=== PATIENT | male | born 1930 | race Caucasian/White ===

== ENCOUNTER 2017-03-14 20:28 | Inpatient (IN) | payer MEDICARE ==
[~2017-03-14] VITALS: Ht 188 cm; Wt 65.2 kg
--- NOTE | ~2017-03-14 | HP ---
PATIENT'S NAME: [facility] AGE: 86 Y [address] ROOM: [place] [address] LOCATION: [facility] ADMIT DATE: 03/14/2017 History & Physical DISCHARGE DATE: FAMILY PHYSICIAN: PHYSICIAN, UNKNOWN ATTENDING PHYSICIAN: DEVORA LAWRENCE V DATE OF SERVICE: CHIEF COMPLAINT: Dehydration. HISTORY OF PRESENT ILLNESS: This is provided by the patient and his daughters. He is an 86-year-old male with multiple medical problems as listed below. Family reports the patient had a considerably diminished oral intake in the course of last 3 days, initially started due to a gastrointestinal upset, that subsequently resolved. However, the patient continued to eat virtually nothing and also did not drink much either. The daughters and the patient denies any fevers, chills, nausea, vomiting, diarrhea, shortness of breath, cough, or palpitations. An evaluation in the ER revealed an elevated creatinine and aside from that was grossly unremarkable. REVIEW OF SYSTEMS: All systems have been reviewed and negative excluding pertinent positives mentioned in the HPI. PAST MEDICAL HISTORY: As retrieved from records: 1. Carcinoma of the bladder, status post resection of benign prostatic hyperplasia, status post TURP. 2. Spinal stenosis. 3. Insulin-dependent diabetes. 4. Essential hypertension. 5. Recorded history of atrial fibrillation though I do not believe the patient is on anticoagulation. 6. Coronary artery disease. 7. Sick sinus syndrome with a pacemaker. 8. GERD. 9. Hiatal hernia. 10. Documented history of congestive heart failure though we have a recent stress and an echo both of which are unremarkable. 11. Carries a history of rheumatoid arthritis. PATIENT'S NAME: [facility] AGE: 86 Y [address] ROOM: [place] [address] LOCATION: [facility] ADMIT DATE: 03/14/2017 History & Physical DISCHARGE DATE: FAMILY PHYSICIAN: PHYSICIAN, UNKNOWN ATTENDING PHYSICIAN: DEVORA LAWRENCE V 12. Cervical and lumbar degenerative joint disease. 13. CKD, appears to be stage 3. 14. Diabetic neuropathy, on gabapentin. 15. Chronic hypoxic respiratory failure with oxygen dependency. CURRENT MEDICATIONS: 1. Albuterol. 2. Amlodipine. 3. Aspirin. 4. Calcium with vitamin D. 5. Colace. 6. Ferrous sulfate. 7. Folic acid. 8. Gabapentin. 9. Insulin NPH 20 units subcu b.i.d. and regular insulin documented as 10 units twice daily p.r.n. 10. Synthroid 125. 11. Magnesium oxide. 12. Metoprolol 25 daily. 13. Multivitamin. 14. Omeprazole. 15. Pravastatin. FAMILY HISTORY: Reviewed and noncontributory due to advanced age. SOCIAL HISTORY: Negative for any ongoing toxic habits. PHYSICAL EXAMINATION: VITAL SIGNS: Temperature 98.3, pulse is 72, respirations are 12, blood pressure 168/80, and saturation 98% on 2 L nasal cannula. GENERAL: Appears as a malnourished elderly male in no acute distress. PSYCHIATRIC: Reveals a very pleasant gentleman, alert and oriented x3, with appropriate cognition and affect. HEENT: Exam reveals dry mucous membranes. EYES: Exam reveals pupils are equal and reactive to light. LYMPHATICS: Exam shows no cervical lymphadenopathy. ENDOCRINE: Exam shows no thyromegaly. LUNGS: There are dry crackles at the right base. HEART: Reveals regular rate and rhythm. GI: Abdomen is soft, nontender, nondistended. Normoactive bowel sounds. : Exam reveal some suprapubic tenderness. VASCULAR: A 2+ pedal pulses. MUSCULOSKELETAL: Exam shows diffuse muscle wasting. PATIENT'S NAME: WOO LUCIA [facility] AGE: 86 Y [address] ROOM: [place] [address] LOCATION: [facility] ADMIT DATE: 03/14/2017 History & Physical DISCHARGE DATE: FAMILY PHYSICIAN: PHYSICIAN, UNKNOWN ATTENDING PHYSICIAN: DEVORA LAWRENCE V LABORATORY DATA: Studies performed in the ER shows lactate of 2.5. Sodium 134, creatinine 1.8 from baseline of approximately 1. Pro-BNP of 6000. Negative cardiac enzymes. Unremarkable CBC. TSH is 3.9. Procalcitonin is negative. Urinalysis has 50 to 100 wbcs with no bacteria. Chest x-ray shows poor inspiratory effort with some crackles versus infiltrate on the right base, which has been present in the past. ASSESSMENT AND PLAN: This is an 86-year-old male who will be admitted with: 1. Jrrbw-[id number] kidney injury, stage 4. This is likely due to dehydration. The patient was already started on hydration and we will continue intravenous normal saline on the floor. We will recheck his electrolytes in the morning. We will also check a postvoid residual to make sure his symptoms are not due to obstructive uropathy though the patient has been voiding; so, it is unlikely to be the cause. 2. Dry crackles. At this point, the patient and family do not volunteer any symptoms or clinical signs consistent with pneumonia. Given the fact that the patient has had C. diff in the past, I would like to stay away from antibiotics and monitor him clinically. 3. Benign prostatic hypertrophy, not sure why the patient is not on an alpha- antagonist and we will have to recheck his medical records. The patient was recently started on Macrodantin by his PCP for questionable urinary tract infection and we will have to follow up his urine cultures drawn here. 4. Insulin-dependent diabetes. We will continue the patient on his current insulin regimen. 5. Encephalopathy/altered mental status and sleepiness. We will decrease the dose of Neurontin, which the patient is on, should his kidney function considerably slow down and observe for effect. 6. Deep venous thrombosis prophylaxis will be pharmacologic if the patient stays in the hospital for more than 48 hours. 7. Additional management will depend on clinical course. Time dedicated to this patient encounter is 35 minutes. MD BROOKS NEAL/neela /[id number] D: [id number] T: [id number] HISTORY & PHYSICAL
--- NOTE | ~2017-03-14 | ER ---
[facility] AGE[facility] 86 Y [address] ROOM: [place] [address] LOCATION: [facility] ADMIT DATE: 03/14/2017 ER/Outpatient Report DISCHARGE DATE: FAMILY PHYSICIAN: PHYSICIAN, UNKNOWN ATTENDING PHYSICIAN: DEVORA LAWRENCE V Admission date and time documented in the medical record. I saw the patient at 2040 hours. CHIEF COMPLAINT: Generalized weakness. The patient is not eating or drinking over the past 3 to 4 days. Stomach distress with nausea. HISTORY OF PRESENT ILLNESS: This patient is an 86-year-old male, who since this past Sunday has had increasing generalized weakness, worsening day-to-day. He refused to eat or drink. He has stomach distress with nausea. No vomiting or diarrhea. No urinary frequency, urgency, or dysuria. No fever, chills, sweats, coughs, colds, or flus. No lightheadedness, dizziness, syncope, or near syncope. No fall or trauma. No headache, eyes, ears, nose, throat, neck, or spine pain. No chest pain or shortness of breath. No joint or muscle swelling, redness, or pain. No skin eruptions or rash. Does have a history of insulin-dependent diabetes mellitus and hypothyroidism. No neuro changes or psych issues. HOME MEDICATIONS: See attached medication list. ALLERGIES: SULFA. SOCIAL HISTORY: Nonsmoker and nondrinker. SIGNIFICANT PAST MEDICAL HISTORY: Atherosclerotic ischemic heart disease with coronary artery disease, bladder cancer, congestive heart failure insulin-dependent diabetes mellitus type 2, hypothyroidism, COPD, gastroesophageal reflux, diverticulosis, diverticulitis, spinal stenosis, benign prostatic hypertrophy, sick sinus syndrome, hiatal hernia, rheumatoid arthritis, chronic kidney disease, degenerative disk disease, osteomyelitis. OPERATIONS: Pacemaker insertion, appendectomy, bladder tumor resection, transurethral resection of the prostate, spine surgery, right foot surgery, cataract extraction. PATIENT'S NAME: [facility] AGE: 86 Y [address] ROOM: [place] [address] LOCATION: [facility] ADMIT DATE: 03/14/2017 ER/Outpatient Report DISCHARGE DATE: FAMILY PHYSICIAN: PHYSICIAN, UNKNOWN ATTENDING PHYSICIAN: DEVORA LAWRENCE V REVIEW OF SYSTEMS: All systems reviewed by me are negative with the exception of those discussed in the history of the present illness. PHYSICAL EXAMINATION: VITAL SIGNS: Temperature was 99.3, tympanic; pulse 83, regular; respirations 18; blood pressure 147/77; O2 saturation on room air is 98%. HEAD: Normocephalic. No abrasion, contusion, laceration, swelling of the scalp or face. EYES: Extraocular muscles intact. PERRL. Sclerae and conjunctivae are clear and nonicteric. Ears: Clear TMs bilaterally. NOSE AND THROAT: Clear. Mucous membranes are dry. NECK: No nuchal rigidity. No thyromegaly or cervical adenopathy. LUNGS: Clear. No rales, rhonchi, or wheezes. HEART: Regular. Pulses are palpable. ABDOMEN: Soft, nondistended, nontender. Good bowel tones. No organomegaly or abnormal masses palpable. No CVA tenderness. EXTREMITIES: No peripheral edema, cyanosis, or deformity. NEUROVASCULAR: Intact. Pulses are intact. SKIN: Clear. LABORATORY DATA: ProBNP was 5904. CMS was normal except for a slightly low sodium 134, elevated glucose 236, low calcium of 8.4, elevated BUN of 33, elevated creatinine 1.8 with a low GFR of 36. Procalcitonin was less than 0.05. Lactate was 2.5. Amylase and lipase were normal. CPK was 65. CK-MB was 1.1. Troponin was less than 0.04. CRP was elevated at 14.4. TSH was 3.93. White count was 10,400, 71 segs, 14 lymphs, 13 monos, 1 eosinophil. Hemoglobin is 11.1, hematocrit 33.7, platelet count is 266,000. Pro-time is 11.4 with an INR of 1.08. Clot tube drawn. Blood cultures x2 drawn. Urine is pending. Urine culture pending. EKG showed paced rhythm. Chest x-rays showed no acute infiltrate or changes. We will review x-ray with the radiologist. EMERGENCY DEPARTMENT COURSE: I did start the patient on IV normal saline, fluids. I gave him 1 L of normal saline bolus and we will start at 125 mL an hour. IMPRESSION: 1. Generalized weakness with lethargy, not wanting to eat or drink. 2. Dehydration. 3. Insulin-dependent diabetes mellitus type 2. 4. Congestive heart failure. 5. Atherosclerotic ischemic heart disease with coronary artery disease. 6. History of bladder cancer. PATIENT'S NAME: WOO LUCIA [facility] AGE: 86 Y [address] ROOM: [address] [address] LOCATION: [facility] ADMIT DATE: 03/14/2017 ER/Outpatient Report DISCHARGE DATE: FAMILY PHYSICIAN: PHYSICIAN, UNKNOWN ATTENDING PHYSICIAN: DEVORA LAWRENCE V 7. Chronic obstructive pulmonary disease. 8. Hypothyroidism. 9. History of sick sinus syndrome with pacemaker insertion. 10. Chronic kidney disease with recurrent urinary tract infections. 11. Rheumatoid arthritis. 12. Hiatal hernia. 13. Degenerative disc disease with past history of osteomyelitis. PLAN: Discussed the patient with Dr. Lawrence, hospitalist. We will admit the patient to med surg outpatient. Continue hydration. Further treatment and evaluation as needed. Discussion ensued with the patient and his family in regard to my findings and recommendations, they understand. MD KALPESH ARRINGTON/modl /[id number] d: 03/15/17 0258 t: 03/15/17 1833, OUTPATIENT REPORT
--- NOTE | ~2017-03-14 | DS ---
PATIENT'S NAME: WOO LUCIA [facility] AGE: 86 Y [address] ROOM: [address] [address] LOCATION: [facility] ADMIT DATE: 03/15/2017 Discharge Summary DISCHARGE DATE: 03/16/2017 FAMILY PHYSICIAN: Zohaib Stahl MD ATTENDING PHYSICIAN: Bud Piña V PRIMARY DIAGNOSES: 1. Acute kidney injury on chronic kidney disease, stage 3. 2. Dehydration. CHRONIC CONDITIONS: Include diabetes type 2 with CKD stage 3, essential hypertension, diabetic neuropathy, and chronic hypoxic respiratory failure. PRINCIPAL PROCEDURES: None was indicated. LABORATORY DATA: Labs on admission: Accu-Cheks ranged between 167 to 350. Cardiac enzymes, one set: Troponin less than 0.040, CPK 65. ProBNP 5904. WBC on admission was 10.4, was stable throughout hospital stay, 9.8 upon discharge. Hemoglobin was 11.1 upon discharge, prior to discharge was 10.2, was stable throughout the hospital stay. Creatinine on admission was 1.8, prior to discharge was 1.5. Potassium was stable throughout hospital stay, at 3.9 upon discharge. Sodium was 139 upon discharge. Bicarb was also stable throughout the hospital stay. Phosphorus was 3.2. Magnesium was stable throughout hospital stay at 2.1. UA: leukocytes 100, nitrite negative, wbc 50 to 100. Amylase 19. Lipase 19. Blood cultures: No growth. Urine culture: Contaminant. Blood culture x2 sets: No growth. RADIOLOGY: Chest x-ray is reported as fibrotic changes are present, worse at the right lung base. No discrete focal infiltrate, pleural effusion, or pneumothorax is identified. Left-sided pacer is stable. HOSPITAL COURSE: For history of present illness, please take a look at the H and P, which was done by Dr. Piña. The patient was admitted to [address] [place] [address], was hydrated as his presenting symptoms was thought to be secondary to dehydration and also acknowledges the fact that the patient does not drink enough fluids as he should. The patient was hydrated for the first 24 hours and his creatinine improved accordingly. Eventually, his IV fluids were cut down and was discontinued upon discharge. The patient's chronic medical problems remained stable throughout his hospital stay. He had PT and OT and participated well with physical therapy as well as occupational therapy. There was no acute medical problem during his short hospital stay. On the day of discharge, his vital signs were stable. His repeat kidney function, creatinine remained stable at 1.5. He had no acute medical problem, and the patient was discharged home. PATIENT'S NAME: WOO LUCIA [facility] AGE: 86 Y [address] ROOM: [place] [address] LOCATION: [facility] ADMIT DATE: 03/15/2017 Discharge Summary DISCHARGE DATE: 03/16/2017 FAMILY PHYSICIAN: Zohaib Stahl MD ATTENDING PHYSICIAN: Bud Piña V DISCHARGE INSTRUCTIONS: His discharge instructions to him and the included to ensure adequate fluid intake, at least 2000 mL of fluid per day given the heat, and the patient is to follow up with his regular family doctor in the next 3 to 4 days to repeat his BMP. DISCHARGE MEDICATIONS: 1. Norvasc 10 mg p.o. daily. 2. Aspirin 81 mg p.o. daily. 3. Colace 100 mg p.o. twice daily. 4. Folic acid 1 mg p.o. daily. 5. Insulin 20 units subcu twice daily and insulin regular 10 units subcu twice daily p.r.n. 6. Neurontin 200 mg p.o. 3 times daily, dose change. 7. Synthroid 125 mcg p.o. daily before breakfast. 8. Magnesium oxide 400 mg p.o. daily. 9. Lopressor 25 mg p.o. q.a.m. 10. Multivitamin one tablet p.o. daily. 11. Pravachol 40 mg p.o. q.h.s. 12. Albuterol 2 puffs q.i.d. p.r.n. 13. Iron sulfate 325 mg p.o. daily. 14. Oxygen tank. 15. Calcium with vitamin D 500 mg p.o. twice daily. 16. Prilosec 20 mg p.o. daily p.r.n. MD CELIA HERNANDEZ/neela /[id number] d: 03/17/17 0211 t: 03/24/17 1428, DISCHARGE SUMMARY
[~2017-03-14 20:28] MED LIST: ALBUTEROL2.5 MG/0.5 INH; ASPIR 8181 MG PO; ASPIRIN LO-DOSE81 MG PO; BACITRACIN OINT30 GM TOP; COLACE100 MG PO; COLCHICINE0.6 M1 PO; COLESTID5 GM PO; COUMADIN ** IA3 MG PO; COZAAR100 MG PO; CREON 121 CAP PO; DIFLUCAN200 MG PO; DOXYCYCLINE100 MG PO; EDECRIN25 MG; EDECRIN25 MG PO; ENBREL25 MG; FEOSOL325 MG PO; FLAGYL500 MG PO; FLOMAX0.4 MG PO; FLORAJEN3 CAPS460 MG PO; FLORASTOR250 MG PO; FOLIC ACID1 MG PO; GABAPENTIN100 MG PO; HUMULIN N100 UNIT/1 SUB-Q; HUMULIN R100 UNIT/1 SUB-Q; K-TAB 10MEQ10 MEQ PO; LASIX20 MG PO; LASIX40 MG PO; LEVAQUIN500 MG PO; LEVOTHROID (S125 MCG PO; LOMOTIL1 TAB PO; LOPRESSOR25 MG PO; MAG-OX-400(241400 MG PO; MAGOX 400400 MG PO; MULTI VITAMIN1 EACH PO; NEOSPORIN1 PKT TOP; NEURONTIN100 MG PO; NEURONTIN300 MG PO; NORMAL SALINE INH; NORVASC10 MG PO; NORVASC2.5 MG; NOVOLIN-N100 UNIT/M SUB-Q; NOVOLIN-R100 UNIT/M SUB-Q; OSCAL + D500 MG PO; OXYGEN M-15 INH; PLAQUENIL200 M1 PO; PLAQUENIL200 MG PO; PRAVACHOL40 MG PO; PRAVACHOL80 MG PO; PRILOSEC20 M1 PO; PRILOSEC20 MG PO; PRINIVIL (ZESTR20 MG PO; PROSCAR5 MG PO; PROVENTIL OR V6.7 GM INH; SODIUM BICARBO650 MG PO; SPIRIVA18 MCG INH; ULTRAM50 MG PO; VANCOCIN HCL125 MG PO; VANCOMYCIN LIQUID PO; VITAMIN D-32000 UNI1 PO; VITAMIN D2000 UNIT PO; ZOFRAN4 MG PO; ZYLOPRIM100 MG PO
[2017-03-14 21:14] LABS: BASOPHIL % 0.3 %; EOSINOPHIL # 0.1 K/uL (0.0-0.5); EOSINOPHIL % 0.5 %; HEMATOCRIT 33.7 % (33.0-50.0); HEMOGLOBIN 11.1 g/dL (11.0-16.0); IMMATURE GRANULOCYTE # 0.1 K/uL (0.0-0.3); IMMATURE GRANULOCYTE % 0.5 %; LYMPHOCYTE # 1.5 K/uL (0.8-4.0); LYMPHOCYTE % 14.4 %; MCH 30.7 pg (27.0-34.0); MCHC 32.9 gm/dL (32.0-36.5); MCV 93.4 fl (83.0-98.0); MONOCYTE # 1.4 K/uL (0.0-1.0); MPV 9.7 fl (9.4-12.4); NEUTROPHIL # (ANC) 7.4 K/uL (1.4-9.0); NEUTROPHIL % 71.3 %; NRBC % 0 /100WBC (0-0.00); PLATELET COUNT 266 K/uL (150-450); RBC 3.61 M/uL (3.50-5.50); RDW-CV 13.4 % (11.9-14.6); WBC 10.4 K/uL (4.0-11.0)
[2017-03-14 21:23] LABS: INR - (THERAPEUTIC) 1.08 (0.92-1.07); PROTIME 11.4 SECONDS (9.8-11.4)
[2017-03-14 21:35] LABS: ALBUMIN 2.5 gm/dL (3.5-5.0); ALK PHOS 65 IU/L (33-138); ALT 19 IU/L (12-78); ANION GAP 13.1 (10.0-19.0); AST 26 IU/L (10-40); BLOOD UREA NITROGEN 33 mg/dL (6-24); CALCIUM 8.4 mg/dL (8.5-10.5); CHLORIDE 102 mMol/L (96-110); CO2 23 mMol/L (22-32); CPK 65 IU/L (35-332); CREATININE 1.8 mg/dL (0.6-1.3); ESTIMATED GFR (MDRD EQUATION) 36; POTASSIUM 4.1 mMol/L (3.7-5.1); SODIUM 134 mMol/L (135-145); TOTAL BILIRUBIN 0.5 mg/dL (0.0-1.5); TOTAL PROTEIN 8.2 g/dL (6.0-8.4)
[2017-03-14 22:18] LABS: BILIRUBIN URINE NEGATIVE (NEGATIVE); BLOOD URINE 50 /UL (NEGATIVE); COLOR URINE YELLOW (YELLOW); GLUCOSE URINE NEGATIVE (NEGATIVE); KETONE URINE 5 mg/dL (NEGATIVE); LEUKOCYTES URINE 100 /UL (NEGATIVE); NITRITE URINE NEGATIVE (NEGATIVE); PROTEIN URINE 500 mg/dL (NEGATIVE); TURBIDITY URINE 2+ (CLEAR); UROBILINOGEN URINE NORMAL (NORMAL)
[2017-03-14 22:38] LABS: WBC URINE 50-100 #/HPF (NEGATIVE)
[2017-03-14 22:40] LABS: AMORPHOUS URINE 1+ (NEGATIVE); BACTERIA URINE NEGATIVE (NEGATIVE); EPITHELIAL URINE 0-2 #/HPF (NEGATIVE)
[2017-03-14 22:43] LABS: WBC CLUMPS URINE FEW (NEGATIVE)
--- NOTE | 2017-03-14 23:53 | NUR ---
A 86 YR OLD MALE ADMITTED FROM ER TO ROOM 3302 FOR GENERALIZED WEAKNESS AND DEHYDRATION. STARTED SUNDAY WITH NAUSEA, NO VOMITING, NOT FEELING WELL. PATIENT DID NOT EAT OR DRINK MUCH SINCE SUNDAY. PATIENT LIVES WITH . PATIENT HAS HX OF INSULIN DEPENDENT DIABETIC. OXYGEN DEPENDENT COPD USES 3-4 L AT HOME. RHEUMATOID ARTHRITIS, CHRONIC UTI'S, PACEMAKER, CONGESTIVE HEART FAILURE, BLADDER CA 2014. HAD LOWER BACK SURGERY AND CERVICAL FUSION TO NECK. NEUROPATHT FROM DIABETIS. TENDERNESS TO FEET. HAS BLISTER AREA TO LEFT GREAT TOE. HAS DRY SKIN ISSUES. ALLERGY TO SULFA, BRACLET ON. NO SOB, PATIENT IS VERY NEW [place], HEARING AIDES ARE NOT WITH PATIENT.PERIODS OF CONFUSION.
--- NOTE | 2017-03-15 03:33 | NUR ---
Significant Event: A/O TO PERSON, PLACE, PERIODS OF CONFUSION TO TIME. PATIENT IN FOR DEHYDRATION AND WEAKNESS. IV FLUIDS INFUSING RIGHT ANTICUBITAL AREA. PATIENT HAD VOIDED IN ER APPROXIMATELY 300ML. HX OF BLADDER CANCER. WAS BLADDER SCANNED FOR 424ML AT 0030. DID VOID ANOTHER 300ML IN URINAL . ADULT DEPENDS ON. HAS SMALL OPEN BLISTER AREA TO RIGHT GREAT TOE. BILATERAL PNEUMATICS ON LOWER EXTREMITES. INCENTIVE USAGE [phone]. TAKES WATER OFFERED. NO NAUSEA. Follow up:
[2017-03-15 05:42] LABS: BASOPHIL % 0.3 %; EOSINOPHIL # 0.1 K/uL (0.0-0.5); EOSINOPHIL % 0.8 %; HEMATOCRIT 31.3 % (33.0-50.0); HEMOGLOBIN 10.2 g/dL (11.0-16.0); IMMATURE GRANULOCYTE # 0.1 K/uL (0.0-0.3); IMMATURE GRANULOCYTE % 0.6 %; LYMPHOCYTE # 1.6 K/uL (0.8-4.0); LYMPHOCYTE % 16.5 %; MCH 30.5 pg (27.0-34.0); MCHC 32.6 gm/dL (32.0-36.5); MCV 93.7 fl (83.0-98.0); MONOCYTE # 1.3 K/uL (0.0-1.0); MONOCYTE % 13.6 %; NEUTROPHIL # (ANC) 6.7 K/uL (1.4-9.0); NEUTROPHIL % 68.2 %; NRBC % 0 /100WBC (0-0.00); PLATELET COUNT 251 K/uL (150-450); RBC 3.34 M/uL (3.50-5.50); RDW-CV 13.5 % (11.9-14.6); WBC 9.8 K/uL (4.0-11.0)
[2017-03-15 06:00] LABS: ANION GAP 12.1 (10.0-19.0); CREATININE 1.5 mg/dL (0.6-1.3); MAGNESIUM 2.2 mg/dL (1.8-2.6); PHOSPHORUS 3.2 mg/dL (2.5-4.9); POTASSIUM 4.1 mMol/L (3.7-5.1)
--- NOTE | 2017-03-15 12:33 | NUR ---
SPOKE TO PATIENT AND HIS SPOUSE JOHNNA AT THE BEDSIDE. INTRODUCED CM AND OUR ROLE. PATIENT LIVES IN OWN HOME WITH SPOUSE HE USES SCOOTER TO GET AROUND AT HOME, HIS SPOUSE REPORTS THAT HE DOES NOT AMBULATE. THE GOAL IS FOR PATIENT TO GO HOME WITH SPOUSE ONCE READY FOR DISCHARGE. PATIENT DOES NOT ANTICPATE ANY DISCHARGE NEEDS AT THIS TIME.
--- NOTE | 2017-03-15 16:24 | NUR ---
Significant Event: pt alert and oriented. up with 1-2 assist. ambulates fairly well to the bathroom. iv fluids at 50 hour. accuchecks ac and hs. 02 at 4 lpm/nc. this is what he uses at home. is in a wheelchair also at home. pt has a pacer. in the room this afternoon. needs assist with ordering food. Follow up:
--- NOTE | 2017-03-16 04:14 | NUR ---
Pt diabetic, w/ accucheck achs, which was 302 last night. Pt on 3-4L O2 per NC chronically. Pt's has his hearing aids. Pt 1-2 assist. Pt woke up confused, thought he was at home. Pt reoriented. Bed alarms on. IV fluids at 50 cc's/hr. No nausea or stools this shift.
[2017-03-16 04:44] LABS: ANION GAP 11.9 (10.0-19.0); CALCIUM 7.7 mg/dL (8.5-10.5); CREATININE 1.5 mg/dL (0.6-1.3); MAGNESIUM 2.1 mg/dL (1.8-2.6); POTASSIUM 3.9 mMol/L (3.7-5.1)
--- NOTE | 2017-03-16 16:14 | NUR ---
Pt discharged to go home at 1345 with spouse. Pt has eaten all of both meals. Takes po fluids with encouragement and had 800 ml in. Pt voided x3 and incontinent in brief x1. Pt alert, forgetful, reorients easily. He is [place] and hearing aides are at home. Pt denies pain. Up wih 2 assist in chair. Pt is not ambulatory. O2 at 4 liters and uses at home. Spouse brought portable tank for ride home. Pt discharged in stable condition to home. Has all belongings.
== END 2017-03-16 12:00 | disposition disaster alternative care site (69) | DRG 304 ==
LOC: GMED 20:28 → G3N 22:44
PROVIDERS: Emergency Medicine; ADMIT Internal Medicine
DX: I13.10 Hypertensive heart and chronic kidney disease without heart failure, with stage 1 through stage 4 chronic kidney disease, or unspecified chronic kidney disease (principal); G93.40 Encephalopathy, unspecified; N17.9 Acute kidney failure, unspecified; J96.11 Chronic respiratory failure with hypoxia; E11.22 Type 2 diabetes mellitus with diabetic chronic kidney disease; E11.40 Type 2 diabetes mellitus with diabetic neuropathy, unspecified; I49.5 Sick sinus syndrome; E86.0 Dehydration; I48.91 Unspecified atrial fibrillation; N18.3 Chronic kidney disease, stage 3 (moderate); D29.1 Benign neoplasm of prostate; Z79.4 Long term (current) use of insulin; Z85.51 Personal history of malignant neoplasm of bladder; Z95.0 Presence of cardiac pacemaker; M15.9 Polyosteoarthritis, unspecified
CPT/HCPCS: G0237; J7030

== ENCOUNTER 2017-03-20 14:11 | Inpatient (IN) | payer MEDICARE ==
[~2017-03-20] VITALS: Ht 185.4 cm; Wt 70.9 kg
--- NOTE | ~2017-03-20 | HP ---
PATIENT'S NAME: WOO LUCIA [facility] AGE: 86 Y [address] ROOM: [id number] [place], [place] [address] LOCATION: [facility] ADMIT DATE: 03/20/2017 History & Physical DISCHARGE DATE: FAMILY PHYSICIAN: Zohaib Stahl MD ATTENDING PHYSICIAN: BRAYDON INGRAM DATE OF SERVICE: CHIEF COMPLAINT: Generalized weakness and decreased appetite. HISTORY OF PRESENT ILLNESS: This is an 86-year-old male, who was recently discharged from the hospital on March 16, 2017, for BREE on CKD stage 3 from decreased appetite from dehydration. The patient was treated with IV fluid hydration and was subsequently discharged. The patient states that when he was discharged, he was feeling fine. However, roughly 5 days ago, the patient started feeling this generalized weakness and has difficulty walking from the generalized weakness. Again, also has been having poor appetite for the last few days. Because of this, the patient went to see primary care physician yesterday, where he had a CT head without contrast performed on March 19, 2017, yesterday; and the report showed new heterogenicity, right parietal and temporal lobe centered within the cortex with surrounding low density and apparent edema. There is some mass effect upon the posterior horn, right lateral ventricle. This may represent neoplasm. Edema associated with subacute ischemia or inflammatory process is also in the differential diagnosis. Recommend further evaluation with MRI of the brain without and with IV contrast. Generalized cerebral atrophy. Moderate chronic-appearing deep white matter changes. Evidence of prior lacunar infarcts. The patient was in [facility] yesterday for observation. His condition did not improve. He had a repeat CT of the head, but with contrast this morning on March 20, 2017, and it showed the findings are most suggestive of a large area of infarction, starting in the posterior temporal region and extending into the right occipital lobe and posterior parietal region. There is more mass effect on the posterior horn of the left lateral ventricle and slightly more [id number] shift in the midline. Because of the concern for the neoplasm that was seen on the CT of yesterday, the patient was sent over here for further care after contacting our on-call neurosurgeon, Dr. Sorensen, who has already spoken to the outside facility transfer physician, and the patient will be admitted to the ICU and will be consulting Neurosurgery as internal consultant and also Neurology as internal consultant. For the plan of care, refer to the assessment and plan for details. The patient denies any slurred speech, facial droop, pronator drift, or any recent fall or any weakness or sensation loss. The only complaint he has PATIENT'S NAME: WOO LUCIA [facility] AGE: 86 Y [address] ROOM: [place] [address] LOCATION: [facility] ADMIT DATE: 03/20/2017 History & Physical DISCHARGE DATE: FAMILY PHYSICIAN: Zohaib Stahl MD ATTENDING PHYSICIAN: BRAYDON INGRAM interestingly was just generalized weakness that he described that he is so weak that he has difficulty walking and also has a poor appetite. He denies any dysphagia or any slurred speech or facial droop. The only other complaint besides the generalized weakness and unable to walk due to weakness, was also the confusion that the family member noticed that happened yesterday. When asked what did they mean by confusion, the family member tells me that when they asked the patient where he was at, the patient would not know. But right now, the confusion has cleared. Right now, he is alert and oriented x3. REVIEW OF SYSTEMS: As mentioned in the history of present illness. All other systems were reviewed and were negative, except those mentioned in the history of present illness. PAST MEDICAL HISTORY: 1. CKD, stage 3. 2. Diabetes type 2. 3. Hypertension. 4. History of bladder cancer, status post surgery. 5. Benign prostatic hypertrophy, status post TURP in the past. 6. Paroxysmal atrial fibrillation, not on Coumadin, unclear why. The patient also does not know. 7. Coronary artery disease, per chart. 8. Sick sinus syndrome, status post permanent pacemaker implantation in the past. 9. Gastroesophageal reflux disease. 10. Hiatal hernia. 11. History of congestive heart failure per record, but the last echo on file was done in April 2015. EF was 50%-55% without evidence of diastolic dysfunction. However, the diastolic function was indeterminate due to the patient's arrhythmia at that time. Most recent stress test was done in July 2015. It was normal, and EF was 74% at that time. 12. Rheumatoid arthritis. ALLERGIES: SULFA WHICH CAUSES A RASH ACCORDING TO THE PATIENT. HOME MEDICATIONS: Currently, it has been reconciled. SOCIAL HISTORY: The patient was a former cigarette smoker. He quit about 14 years ago. He used to smoke about 1 pack per day since he was 15-year-old. He denies any PATIENT'S NAME: WOO LUCIA [facility] AGE: 86 Y [address] ROOM: [id number] [place], [place] [address] LOCATION: [facility] ADMIT DATE: 03/20/2017 History & Physical DISCHARGE DATE: FAMILY PHYSICIAN: Zohaib Stahl MD ATTENDING PHYSICIAN: BRAYDON INGRAM alcohol or any illegal drug use. PAST SURGICAL HISTORY: 1. Status post neck surgery in the past. 2. Status post bladder cancer surgery in the past. 3. Status post permanent pacemaker implantation for sick sinus syndrome in the past. 4. Status post carpal tunnel syndrome. 5. Status post TURP for benign prostatic hypertrophy. 6. Status post lumbar spine fusion. 7. Status post cataract surgery. 8. Status post tonsillectomy. PHYSICAL EXAMINATION: VITAL SIGNS: At the time of my dictation, temperature 97.4, heart rate 72, respirations 16, blood pressure was 127/62, saturation is 99% on 4 L nasal cannula. There will be an addendum for the physical examination currently because the nurses are doing their assessment right now, and I will be doing the examination after it is done. LABORATORY DATA: Currently, our labs are pending. IMAGES: I obtained the CT of the brain without contrast and also CT of the brain with contrast that were performed over the last 2 days, and the report is already mentioned in the history of present illness. ASSESSMENT AND PLAN: 1. Regarding his cerebrovascular accident on the right side as mentioned in the CT of the brain reports: Speech and Swallow evaluation. We will get a CT angiogram of the head and neck and can not get MRI with and without contrast of the brain due to pacemaker. We will consult Neurosurgery and also consult Neurology. Blood pressure should be maintained less than 150 as systolic blood pressure. We will be using the home medication for the blood pressure control as well as IV labetalol p.r.n. and also IV hydralazine p.r.n. We will start him on the IV labetalol drip if necessary. Watch closely for risk of hemorrhage given that the stroke is large. No aspirin and also no subcu heparin or subcu Lovenox or any blood thinner for now per Neurosurgery due to the risk of hemorrhagic transformation due to the large area of stroke in the brain. ICU status for now. We will also get a transthoracic echo right now, looking for any cardioembolic source. The patient has a history of paroxysmal atrial PATIENT'S NAME: WOO LUCIA [facility] AGE: 86 Y [address] ROOM: [place] [address] LOCATION: [facility] ADMIT DATE: 03/20/2017 History & Physical DISCHARGE DATE: FAMILY PHYSICIAN: Zohaib Stahl MD ATTENDING PHYSICIAN: BRAYDON INGRAM. However, he is not on blood thinner likely due to the different area of the stroke in the right side of the brain, likely this could be cardioembolic. For heart rate control, he will be getting IV Lopressor p.r.n. in addition to the home p.o. Lopressor [id number]. We will get EKG right now to confirm sinus rhythm or atrial fibrillation rhythm. Further plan will depend on clinical course. This plan is formulated with the on-call neurosurgeon, Dr. Sorensen, who I have already spoken to on the phone about the plan in detail per Neurosurgery recommendation. Further plan will depend on clinical course. 2. Regarding his diabetes type 2: Use half of the long-acting insulin that he uses at home and also adding on the subcu Aspart a.c. and h.s. also while he is eating and also subcu regular insulin when he is n.p.o. Speech and Swallow evaluation right now. Diet per Speech and Swallow evaluation. We will also check hemoglobin A1c. 3. Regarding his hypertension: Continue all the medication mentioned before in addition to the IV labetalol p.r.n. and also IV hydralazine p.r.n. for the goal of maintaining to keep the systolic blood pressure less than 150. 4. Regarding his history of paroxysmal atrial fibrillation: Continue the Lopressor standing home dose. The patient has a pacemaker. In addition, he has IV Lopressor p.r.n. in case he becomes tachycardic. Regarding the anticoagulation, currently definitely it is not a good time due to the large area of ischemic stroke due to the risk of hemorrhagic conversion. Anticoagulation will defer to Neurology and Neurosurgery when is the good time to resume. Cardiology could also be consulted if necessary in the near future. 5. Regarding his coronary artery disease: Currently, stable. We will be checking one set of troponin, CPK, and CK-MB and also a proBNP and also EKG. He denies any chest pain. 6. Regarding his sick sinus syndrome, status post pacemaker implantation: We will request Cardiology to please read the echo and also check pacemaker interrogation. 7. Regarding his gastroesophageal reflux disease: Continue the home proton pump inhibitor. 8. Regarding his history of congestive heart failure: Currently, the patient looks dry on examination. Echo will have a better definition of the EF and also any valvulopathy. 9. Regarding his deep venous thrombosis prophylaxis: He will be on compression devices for now. Time spent in the care on the day of admission 50 minutes, where 30 minutes was spent on counseling, including going over the plan of care with the patient's family and the patient and also addressing all the questions and concerns to their satisfaction. The remainder of time was spent on chart review, interview, and also on the physical examination. PATIENT'S NAME: WOO LUCIA [facility] AGE: 86 Y [address] ROOM: [place] [address] LOCATION: [facility] ADMIT DATE: 03/20/2017 History & Physical DISCHARGE DATE: FAMILY PHYSICIAN: Zohaib Stahl MD ATTENDING PHYSICIAN: BRAYDON INGRAM Further plan will depend on clinical course. BRAYDON INGRAM MD CC/modl /[id number]: [id number] T: HISTORY & PHYSICAL
--- NOTE | ~2017-03-20 | CON ---
PATIENT'S NAME: WOO LUCIA [facility] AGE: 86 Y [address] ROOM: [id number] [place] [id number] LOCATION: [facility] ADMIT DATE: 03/20/2017 Consultation DISCHARGE DATE: FAMILY PHYSICIAN: Zohaib Stahl MD ATTENDING PHYSICIAN: BRAYDON INGRAM DATE OF CONSULTATION: 03/22/2017 REFERRING PHYSICIAN: ANGELA JEROME MD REASON FOR CARDIOLOGY CONSULT: History of paroxysmal atrial fibrillation, possible PFO on echo, and recent stroke. HISTORY OF PRESENT ILLNESS: This is an 86-year-old male admitted with a recent acute ischemic stroke to the right temporoparietal area described as large and possibly recurrent. He has a previous medical history including paroxysmal atrial fibrillation and on his environmental monitoring technician at this time he appears to be in an atrial flutter. He also has a history of a dual-chamber [employer] permanent pacemaker. Once again, there is a possibility of a PFO on his echocardiogram and has a previous history of diastolic congestive heart failure, chronic kidney disease, diabetes mellitus type 2, hypertension, and bladder cancer. There was also noted history of GERD, hiatal hernia, and rheumatoid arthritis. At the time of this consult, the patient is resting comfortably in his chair. He denies complaints of chest pain or shortness of breath. Also no previous history of chest pain, palpitations, presyncope, or syncope. Prior to his initial admission in [place], before transferring to [facility], he had complaints of weakness and loss of appetite. PAST MEDICAL HISTORY: As listed in the HPI. PAST SURGICAL HISTORY: Includes neck surgery, bladder cancer removal, the [employer] dual-chamber permanent pacemaker implanted for sick sinus syndrome. He has also had carpal tunnel surgery, transurethral resection of the prostate, lumbar spine fusion, cataract surgery, and tonsillectomy. FAMILY HISTORY: The patient's father was a diabetic and his mother had a history of breast cancer. He has another brother with a history of diabetes. SOCIAL HISTORY: The patient is a former cigarette smoker. He smoked for a total of 66 years and at that time was smoking one pack per day. He quit smoking in 2011. He [facility] 86 Y [address] ROOM: [id number] [place], [place] [address] LOCATION: [facility] ADMIT DATE: 03/20/2017 Consultation DISCHARGE DATE: FAMILY PHYSICIAN: Zohaib Stahl MD ATTENDING PHYSICIAN: BRAYDON INGRAM denied alcohol or illicit drug use. CURRENT MEDICATIONS: 1. Rocephin 1 g IV daily in the evening. 2. Aspirin 81 mg p.o. daily at night. 3. Colace 100 mg p.o. twice daily. 4. Levothyroxine 125 mcg p.o. daily. 5. Lipitor 40 mg p.o. daily. 6. Lopressor 25 mg p.o. daily. 7. Neurontin 200 mg p.o. 3 times daily. 8. Norvasc 10 mg p.o. daily. 9. Novolin N 10 units subcu twice daily. 10. NovoLog subcu on a moderate sliding scale per a.c. and at bedtime Accu- Cheks. MEDICATION ALLERGIES: Sulfamethoxazole causing rash. REVIEW OF SYSTEMS: Pertinent positive review of systems listed in the HPI. All other review of systems evaluated and negative. PHYSICAL EXAMINATION: VITAL SIGNS: Temperature 97.7, pulse 70, respirations 20, blood pressure 127/60, O2 saturation 97% on 2 L nasal cannula. The patient weighs 69.4 kg. SKIN: Jaconita, warm, and dry. EYES: Sclerae clear. No xanthelasmas. ENT: Oral mucosa is pink and moist. No jugular venous distention or carotid bruits. CHEST: Respirations are even and slightly labored. Lung sounds have bilateral basilar crackles noted. HEART: Irregular rate and rhythm. Normal S1, S2. Once again, he appears to be in atrial flutter. ABDOMEN: Soft, nontender. MUSCULOSKELETAL: Upper and lower extremity weakness noted to the left side. NEUROLOGIC: He also has left-sided visual deficit noted on neurological exam. EXTREMITIES: Peripheral pulses palpable. No clubbing, cyanosis, or edema. PSYCH: Alert and oriented. Mood and affect are appropriate. IMPRESSION AND PLAN: Per Dr. Campos. 1. History of paroxysmal atrial fibrillation and current atrial flutter. 2. Recent acute ischemic stroke, once again in the right temporoparietal area described as large and possibly recurrent. 3. History of permanent pacemaker. PATIENT'S NAME: WOO LUCIA [facility] AGE: 86 Y [address] ROOM: [id number] [place], [place] [address] LOCATION: [facility] ADMIT DATE: 03/20/2017 Consultation DISCHARGE DATE: FAMILY PHYSICIAN: Zohaib Stahl MD ATTENDING PHYSICIAN: BRAYDON INGRAM 4. Possible patent foramen ovale on echocardiogram. 5. Chronic diastolic congestive heart failure. 6. Chronic kidney disease. 7. Diabetes mellitus type 2. 8. Hypertension. The patient's embolic stroke is probably from atrial fibrillation , but the patent foramen ovale could also contribute. We cannot anticoagulation at this time due to needing to avoid hemorrhagic transformation. We will try to maintain him in sinus rhythm with amiodarone. We will start with an IV bolus of 150 mg IV over 10 minutes and drip per protocol. We will then plan to transition to p.o. He did have a previous history of bruising while on Coumadin, but no notation of major bleeding requiring transfusions. We could also consider a left atrial appendage closure later in his care. We will try and get his old cardiac records from [facility] and we will check an EKG today. We will continue to monitor, evaluate, and treat as appropriate. Thank you for this consult. Thank you for allowing [facility] to interact in the care of this patient. ANDRZEJ CRISTINA APRN FOR MD JOANNE WRIGHT/neela /[id number] d: 03/22/17 1802 t: 04/03/17 0820, CONSULTATION REPORT
--- NOTE | ~2017-03-20 | CON ---
PATIENT'S NAME: WOO LUCIA [facility] AGE: 86 Y [address] ROOM: [id number] [place], [place] [address] LOCATION: GICU ADMIT DATE: 03/20/2017 Consultation DISCHARGE DATE: FAMILY PHYSICIAN: Zohiab Stahl MD ATTENDING PHYSICIAN: BRAYDON INGRAM DATE OF CONSULTATION: 03/22/2017 REFERRING PHYSICIAN: ANGELA SORENSEN MD REASON FOR CONSULTATION: The patient was seen on Neurologic consultation at 8 a.m. on 03/22/2017 at the request of the hospitalist. HISTORY OF PRESENT ILLNESS: Mr. Lucia is an 86-year-old male patient who recently had admission here to our hospital for diminished oral intake, dehydration, and gastrointestinal upset, previously he had a history of episodes of diarrhea. The patient holds a prior history of carcinoma of the bladder and insulin-dependent diabetes. Furthermore, he has a cardiac pacemaker associated with sick sinus syndrome and history of coronary artery disease, also a history of documented congestive heart failure. As far as my knowledge, there was also a history of atrial fibrillation; however, the patient had not been on anticoagulation at that time. He had a brief stay in the hospital and was discharged on the only to come back on the after he experienced a sudden onset of a headache into the bifrontal region. His denies that he had any difficulty with his speech or focal weakness of the limbs. He did note that he was a bit quiet more than usual and had not had much appetite and was not eating very well. He apparently went to his primary medical doctor who sent the patient in for brain scan due to the sudden onset of his headache and it was found that the patient had a new evolving right MCA stroke. This right MCA stroke involves the area of the parietal, temporal, and into the occipital region sparing the portion of the brain anterior to the motor strip. Therefore, he did not have any focal weakness of his limbs on the left-side. His primary issue was one of the visual field neglect of his left-side. Essentially, he was sent here to the hospital for evaluation after the finding on CT was performed. A followup CAT scan was performed here in our hospital on the and showed the stroke was present, but had not evolved anymore. There was some mild mass effect, but no evidence of any worsening of the stroke and no areas of hemorrhagic conversion seen. The patient was noted to have this history of atrial fibrillation thus his pacemaker was interrogated for a recent history to search for atrial fibrillation. There was evidence that the patient did have runs of atrial fibrillation. This is likely associated with the patient having the sudden onset of a stroke due to its large size. It would make pure sense that this large stroke presentation was related to his known atrial fibrillation. Neurosurgery, Dr. Sorensen saw the PATIENT'S NAME: WOO LUCIA [facility] AGE: 86 Y [address] ROOM: [id number] [place], [place] [address] LOCATION: [facility] ADMIT DATE: 03/20/2017 Consultation DISCHARGE DATE: FAMILY PHYSICIAN: Zohaib Stahl MD ATTENDING PHYSICIAN: BRAYDON INGRAM patient just to make sure that there was no evidence for concern of neoplasm based upon the prior history of cancer as mentioned, but there was no obvious area of tumor seen and there was no obvious region within the right MCA that was suggestive of this and the scan was clearly associated with a stroke as well as his symptoms. The patient absolutely was doing well when I saw him today, he had no slurred speech, and no facial drift. He was a bit tired, but participated in all testing of his motor power. He did not notice any pronator drift. He had full power in the upper and lower extremities proximally and distally. He denied any sensory loss, but there was a bit of two point discrimination loss on the left and he tended to not look towards his left. He clearly had a left hemianopsia and he did not notice my hand in his left visual field. Otherwise, the patient maintained a good mentation and was able to ambulate with physical therapy today. PAST MEDICAL HISTORY: Diabetes type 2, hypertension, he also has advanced kidney disease, stage 3, history of a benign prostatic hypertrophy, status post a TURP in the past. Cardiac history, he is known to have paroxysmal atrial fibrillation and even as of recently his pacemaker has been interrogated, which confirmed his history of coronary artery disease and sick sinus syndrome for which he has a permanent pacemaker, history of gastroesophageal reflux disease. He has also been evaluated due to a history of congestive heart failure, but his echocardiogram was fairly well showing a good ejection fraction and he does not present with CHF today. He also has had a recent admission for dehydration and poor p.o. intake. ALLERGIES: HE HAS ALLERGIES TO SULFA, WHICH CAUSES HIM TO HAVE A RASH. PAST SURGICAL HISTORY: History is extensive including tonsillectomy, lumbar spinal fusion surgery, carpal tunnel release surgery, a TURP as mentioned for benign prostatic hypertrophy, and had a history of cataract surgery and bladder cancer surgery. SOCIAL HISTORY: There is no history of alcohol use. He is and he lives in [place] with his who is his primary caregiver. He is retired presently, does not smoke, but he did smoke in the past, back in 2011, he one time was a 66-year- pack smoker. FAMILY HISTORY: Includes diabetes in the father, his mother had breast cancer, as well as mother with myocardial infarction. His brother had a history of diabetes. REVIEW OF SYSTEMS: PATIENT'S NAME: WOO LUCIA [facility] AGE: 86 Y [address] ROOM: [place] [address] LOCATION: GICU ADMIT DATE: 03/20/2017 Consultation DISCHARGE DATE: FAMILY PHYSICIAN: Zohaib Stahl MD ATTENDING PHYSICIAN: BRAYDON INGRAM The patient had a recent admission here in our hospital for poor p.o. intake, dehydration, which he did well after rehydration. He returned back to this hospital after sudden-onset of a headache, he did not have any outward stroke symptoms that was obvious, but a CAT scan was performed, which showed evidence of right MCA stroke, which was confirmed here in our hospital. The patient is actually doing well and has very minimal signs of a stroke even though the stroke is fairly large by size. GI history of chronic GI complaints including diarrhea, poor p.o. intake, history of dehydration. He has a cardiac history as mentioned, history of coronary artery disease and a pacemaker for sick sinus syndrome. Endocrine diabetes, controlled. Cancer history, he has known bladder cancer, extent of this cancer is known to myself. PHYSICAL EXAMINATION: There is an elderly thin gentleman who is sitting in a chair. He was a bit tired, but he awakened easily. He answers all questions appropriately. He did not have any slurring of speech. There were no errors of his speech. He opens his eyes, but tends to gaze towards the right and ignore the left visual field. Cranial nerves 2 through 12 was intact except for visual field neglect of his left visual field, he cannot identify my hand or fingers in his left visual field, but only can identify them when they come close to his nose midline. There is no facial droop. There is normal facial sensation. His motor exam was excellent with 5/5 power, normal bulk and tone. Rapid alternating hand movements were normal. Ibdrnz-al-jiof testing was normal. No pronator drift. His gait with assistance in use of walker did not reveal any wide-based gait or unsteadiness. He had a tendency to just be slow from the beginning, but I did not recognize significant deficits with walking. IMPRESSION: Mr. Lucia had a new right middle cerebral artery stroke. The stroke was present posterior to the motor strip. This was yossi for him as he has no hemiparesis. It is primarily involving the occipital cortex and some sensory neglect of his left-side and his left hemivisual field. I discussed with the family that certainly this was a very yossi close call and he should make a good recovery of his visual field deficit over the course of the next few months. From a standpoint of protecting against a recurrent stroke, he needs to be on anticoagulation. I recommend since the size of the stroke is fairly large that we wait at least 7 to 10 days after the evidence for this stroke, which would place starting anticoagulation around March 28 or . I favor oral anticoagulation with warfarin as it is difficult to regulate newer oral anticoagulants by their dosing in persons with renal failure. The patient will have to be started on oral anticoagulation at day 10 outside the hospital if he does go home and does not require inhouse physical therapy. This can be arranged with his primary doctor and it can be started at a low dose of 5 mg and appropriately be titrated to an INR of 2 to 2.5. Neurology can certainly assist in the dosing if need be. Again, I believe the patient had a stroke PATIENT'S NAME: WOO LUCIA [facility] AGE: 86 Y [address] ROOM: [id number] [place], [place] [address] LOCATION: [facility] ADMIT DATE: 03/20/2017 Consultation DISCHARGE DATE: FAMILY PHYSICIAN: Zohaib Stahl MD ATTENDING PHYSICIAN: BRAYDON INGRAM from atrial fibrillation thus it is important to prevent any further strokes beyond this with anticoagulation. MD JUAN ANTONIO CARMONA/neela /[id number] d: 03/23/17 0418 t: 03/28/17 1748, CONSULTATION REPORT
--- NOTE | ~2017-03-20 | HP ---
PATIENT'S NAME: WOO LUCIA [facility] AGE: 86 Y [address] ROOM: [id number] [place], [place] [address] LOCATION: [facility] ADMIT DATE: 03/20/2017 History & Physical DISCHARGE DATE: FAMILY PHYSICIAN: Zohaib Stahl MD ATTENDING PHYSICIAN: BRAYDON INGRAM DATE OF SERVICE: ADDENDUM: Addendum to the history and physical. NEUROLOGICAL: Cranial nerves 2 through 12 remarkable for left sided visual field vision loss. There is no facial droop. No slurred speech. Pronator drift negative. He does have a positive Babinski in the left foot. He has a decreased reflex in both knees. Sensation intact. Muscle strength 5/5 in all extremities. No tongue deviation upon protrusion. Gait not assessed due to fall risk. Dhyvnf-ir-bflw intact. Atht-is-grhz intact. Proprioception affected on the right foot. Proprioception is intact on the left foot. Vibration intact in both lower extremities and also both upper extremities. LABORATORY DATA: Currently, the blood work is pending given that the patient already got a CT of the head with contrast earlier today from the outside facility, awaiting for the kidney function and perhaps will have to postpone the CT angiogram of the brain and neck until tomorrow after giving IV fluids for hydration given that the patient does have a CKD stage 3 at baseline. Awaiting for the blood work and I will call Dr. Sorensen to discuss about the possibility of postponing the CT angiogram to tomorrow. In addition, the patient has a pacemaker, therefore, he cannot get MRI of the brain with and without contrast as initially planned. For all the followup plan of care, refer to the initial history and physical. If the Speech and Swallow cannot come today to evaluate the patient, we will have a bedside dysphagia screen. If passes, the patient can eat a diabetic diet. If the patient fails, the patient will be n.p.o. For now, start the patient on IV fluids and normal saline for hydration. Monitor in's and out's strictly. Further plan will depend on clinical course. BRAYDON INGRAM MD CC/modl PATIENT'S NAME: WOO LUCIA [facility] AGE: 86 Y [address] ROOM: [address] [address] LOCATION: [facility] ADMIT DATE: 03/20/2017 History & Physical DISCHARGE DATE: FAMILY PHYSICIAN: Zohaib Stahl MD ATTENDING PHYSICIAN: BRAYDON INGRAM /[id number] D: 347 T: 058 HISTORY & PHYSICAL
--- NOTE | ~2017-03-20 | CON ---
PATIENT'S NAME: WOO LUCIA [facility] AGE: 86 Y [address] ROOM: [place] [address] LOCATION: GICU ADMIT DATE: 03/20/2017 Consultation DISCHARGE DATE: FAMILY PHYSICIAN: Zohaib Stahl MD ATTENDING PHYSICIAN: AVTAR INGRAM DATE OF CONSULTATION: 03/20/2017 DATE OF SERVICE: 03/20/2017 REFERRING PHYSICIAN: ANGELA JEROME MD CHIEF COMPLAINT: Right temporal-occipital ischemic stroke. HISTORY OF PRESENT ILLNESS: The patient is an 86-year-old male patient who was recently discharged from [facility] after he was treated for acute kidney insufficiency with IV hydration. For the last 5 days, the patient has been complaining of generalized weakness. He was seen by his family physician on March 19, and noncontrast CT head showed evidence of hypodense area within the right temporal lobe. He then had a repeat scan with contrast on March 20, 2017, and that showed very large right temporooccipital stroke. I was contacted and reviewed the imaging. I recommended transferring the patient over under the hospitalist for further investigations and management. I met the patient in the presence of his family on the [place]. They confirmed the history. The patient himself denied headache, speech difficulty, or weakness in his hands or feet. He denied visual disturbances. He denied recent falls. He denied seizures. He denied chest pain, leg pain, or abdominal pain. He denied back pain. PAST MEDICAL AND SURGICAL HISTORY: Chronic kidney disease, hypertension, diabetes, benign prostatic hypertrophy, history of bladder cancer, atrial fibrillation, coronary artery disease, gastroesophageal reflux disease, congestive heart failure, anterior cervical arthrodesis, status post carpal tunnel syndrome release, and status post lumbar spine surgery. MEDICATIONS: Listed in the patient's chart. ALLERGIES: SULFA. REVIEW OF SYSTEMS: All points of review of systems were asked about. Pertinent positives were mentioned in the HPI. PATIENT'S NAME: WOO LUCIA [facility] AGE: 86 Y [address] ROOM: [place] [address] LOCATION: [facility] ADMIT DATE: 03/20/2017 Consultation DISCHARGE DATE: FAMILY PHYSICIAN: Zohaib Stahl MD ATTENDING PHYSICIAN: AVTAR INGRAM FAMILY HISTORY: Noncontributory to the patient's presentation. SOCIAL HISTORY: The patient is an ex-smoker. He denies alcohol intake. PHYSICAL EXAMINATION: GENERAL: The patient was cooperative and pleasant. VITAL SIGNS: Systolic blood pressure was less than 150. HEENT: Head: It was atraumatic. Pupils were 3 mm and reactive. Eye movements were full. Face was symmetric. NECK: No tenderness to palpation. No palpable masses. Neck range of motion was painless. CHEST: No tenderness to palpation. ABDOMEN: Nontender and soft. CARDIOVASCULAR: He had palpable pulses in the upper extremities. GAIT: Not done. BACK: Not done. MUSCULOSKELETAL: He had diffuse muscle atrophy in the upper and lower extremities. No tenderness to palpation in the calf muscles. NEUROLOGIC: He was alert and oriented to time, place, and person. Pupils were 3 mm and reactive. Face was symmetric. He obeyed 1 and 2-step commands. He named 3/3 objects. He moved all 4 extremities without any obvious weakness. INVESTIGATIONS: 1. Noncontrast CT head done on March 19, 2017, which I personally reviewed. It showed evidence of hypodense area within the posterior aspect of the right temporoparietal region. It also showed evidence of ventriculomegaly as well as diffuse brain atrophy. 2. CT head with contrast done on March 20, 2017, which I personally reviewed and compared to the first scan. It showed a new area of hypodensity within the right temporooccipital region. The imaging findings are highly suggestive of an ischemic stroke. No evidence of abnormal enhancement within the hypodense area. IMPRESSION: This 86-year-old male patient is found on head CT scan to have a new right temporooccipital ischemic stroke. The patient does have a complicated medical history. His neurological examination is reassuring at this point. PLAN: 1. Admission to the hospital under the hospitalist for further investigations of ischemic stroke. PATIENT'S NAME: WOO LUCIA [facility] AGE: 86 Y [address] ROOM: [id number] [place], [place] [address] LOCATION: [facility] ADMIT DATE: 03/20/2017 Consultation DISCHARGE DATE: FAMILY PHYSICIAN: Zohaib Stahl MD ATTENDING PHYSICIAN: AVTAR INGRAM 2. Cardiac echocardiogram to assess for heart thrombi. 3. CT angiogram of the head and neck to assess for carotid disease. 4. Keep the systolic blood pressure less than 150. 5. Repeat noncontrast CT head on March 21 to assess for hemorrhagic transformation and new strokes. I discussed the imaging findings with the patient, his family, and the admitting physician. I clearly indicated that he did suffer an ischemic stroke on the right side. I then discussed the etiology of the stroke. I then discussed my plan with all of them. They asked appropriate questions, and those were answered to their satisfaction. It was a pleasure taking care of this patient, and thanks for having us involved. MD PAULETTE MELLO/modl /[id number] CC: MD Avtar Roche MD Julie M Stevens, MD d: 03/21/17 1842 t: 03/22/17 1131, CONSULTATION REPORT
--- NOTE | ~2017-03-20 | DS ---
PATIENT'S NAME: WOO LUCIA [facility] AGE: 86 Y [address] ROOM: [id number] [place], [place] [address] LOCATION: [facility] ADMIT DATE: 03/20/2017 Discharge Summary DISCHARGE DATE: 03/25/2017 FAMILY PHYSICIAN: Zohaib Stahl MD ATTENDING PHYSICIAN: Avtar Stone PRIMARY DIAGNOSES: 1. Right temporal, occipital, and parietal CVA. 2. Paroxysmal atrial fibrillation with rapid ventricular response. 3. Patent foramen ovale. 4. Chronic kidney disease, stage 3. 5. Cerebral edema. CHRONIC CONDITIONS: Include 1. Diabetes, type 2 with hypoglycemia. 2. Chronic hypoxic respiratory failure. 3. COPD. 4. Essential hypertension. 5. CHF. OTHER ACUTE CONDITIONS: Include physical deconditioning. LABORATORY DATA: Lactic acid on admission was 2.7 and prior to discharge was 1.5. WBC on admission was 13.8 and was stable throughout the hospital stay; prior to discharge was 11.0, H and H as well were stable throughout the hospital stay at 10.2/30.8 at discharge, and platelets were also stable at 296. Sodium was also stable throughout the hospital stay at 135 prior to discharge, potassium was 3.5 and was repleted, bicarb was 22, and BUN was 21. Liver function tests were within normal limits. His hemoglobin A1c was 9.2. UA: Leukocytes of 500, nitrite was negative, wbc of 20 to 50, and bacteria few. Procalcitonin was less than 0.05. Microbiology: Urine culture was no growth x2 days and blood culture was no growth. DIAGNOSTIC STUDIES: CTA of the head and neck showed edema at the right posterior, right parietal, and occipital regions with some attenuation of the branch vessels of the right MCA at this side as compared to the left side of uncertain significance. No discrete vessel occlusion, vascular malformation, or aneurysm is identified. Emphysematous changes at the upper lungs bilaterally and right pleural fluid collection. No evidence of carotid artery stenosis, vascular malformation, or aneurysm. Chest x-ray with patchy, streaky parenchymal opacities persistent in the bibasilar distribution, worse on the right side. Upper lungs are clear. Left- sided base is stable. Mild blunting of the right costophrenic angle suggested a small right pleural fluid collection. There was no evidence of a PATIENT'S NAME: WOO LUCIA [facility] AGE: 86 Y [address] ROOM: [id number] [place], [place] [address] LOCATION: [facility] ADMIT DATE: 03/20/2017 Discharge Summary DISCHARGE DATE: 03/25/2017 FAMILY PHYSICIAN: Zohaib Stahl MD ATTENDING PHYSICIAN: Avtar Stone. CT of abdomen and pelvis, severe pulmonary fibrosis with new right pleural effusion, negative abdomen without acute findings. A repeat CT of the head, stable-appearing right hemispheric stroke bed without acute hemorrhage. On repeat CT of the head a day prior to discharge, evolving ischemic infarct in the posterior right cerebral hemisphere with no hemorrhagic transformation identified on this level of study. Echocardiogram with ejection fraction of 55% to 60%, mild concentric left ventricular hypertrophy, grade 3 restrictive diastolic dysfunction. Informed consent was obtained. Bubble study was done. Bubbles crossed to the left atrium suggesting PFO or ASD. Venous duplex, no evidence of deep vein thrombosis or superficial thrombophlebitis in the lower extremities bilaterally. Low flow was seen in popliteal veins bilaterally, possibly secondary to CHF. HOSPITAL COURSE: For history of present illness, please take a look at the H and P, which was done by Dr. Stone. The patient was admitted to ICU, given his extensive large right temporal, occipital, and parietal CVA, but however, surprisingly, the patient did not have any neurological deficits. He did also get a Neurosurgical consult, given the CT finding of the cerebral edema with a midline shift. The patient was monitored closely without any symptoms or any acute neurological decompensation. He was also managed as per the stroke order set. His echocardiogram which was done was positive for probably a PFO or ASD. Following this, he did get a Cardiology consult, and Cardiology recommended for the patient to be started on anticoagulation, given his atrial fibrillation. 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 During his stay, the patient also did develop some chronic atrial fibrillation with RVR. For this, his pacemaker was interrogated, which showed that the patient has been in and out of atrial fibrillation since March 16. For this, he was put on amiodarone drip, which was later switched to p.o. by the company truck driver, and he remained in sinus thereafter. After Neurology evaluated the patient, they felt that the patient needed to be on anticoagulation, and they recommended that this could be started from February 26, 2017. The patient was a bit deconditioned. At baseline, he normally moves around with a scooter. However, during his hospital stay, he was able to ambulate some with PT and OT, and it was recommended that the patient would benefit from his physical deconditioning by going to a swing bed. He continued to cooperate pretty well with the Physical Therapy and also Occupational Therapy, and business initiatives manager helped with the placement. From the neurological point of view, the patient was observed, and he had a serial CT head done to monitor his cerebral edema, PATIENT'S NAME: WOO LUCIA [facility] AGE: 86 Y [address] [id number] [address] LOCATION: [facility] ADMIT DATE: 03/20/2017 Discharge Summary DISCHARGE DATE: 03/25/2017 FAMILY PHYSICIAN: Zohaib Stahl MD ATTENDING PHYSICIAN: Avtar Stone which remained stable throughout the hospital stay. The patient did not demonstrate any signs of raised intracranial pressure throughout his whole hospital stay. So, on the day of discharge, vital signs were stable. The patient was on his baseline oxygen demand of 3 L to 4 L of oxygen, and was discharged to [facility] swing bed. DISCHARGE INSTRUCTIONS: Include follow up with Dr. Urban in the next two weeks and Dr. Mtz, his urologist in [facility] in one week. He is to follow up with Dr. Campos, the company truck driver at the next available in 2 weeks. For Neurosurgery, follow up as p.r.n., and he is to repeat CT head on March 30, 2017 without contrast. MEDICATIONS ON DISCHARGE: Include 1. Norvasc 10 mg p.o. daily. 2. Aspirin 81 mg p.o. daily. 3. Amiodarone 400 mg p.o. twice daily, new medication. 4. Colace 100 mg p.o. twice daily. 5. Neurontin 200 mg p.o. three times daily. 6. Insulin regular 10 units subq twice daily p.r.n. 7. Lipitor 40 mg p.o. daily. 8. Insulin NPH 20 units subq twice daily. 9. Synthroid 125 mcg p.o. daily before breakfast. 10. Lopressor 25 mg p.o. q.a.m. 11. Os-Walter and D 500 mg p.o. twice daily. 12. Coumadin 5 mg p.o. daily, to start on March 28, 2017. 13. Prilosec 20 mg p.o. daily p.r.n. 14. Albuterol two puffs every 4 hours p.r.n. 15. Iron sulfate 325 mg p.o. daily. 16. Folic acid 1 mg p.o. q.a.m. 17. Multivitamin one tablet p.o. daily. 18. Oxygen tank. 19. Magnesium oxide 400 mg p.o. daily. Discharge time spent on this patient was about 35 minutes, which included coordinating the discharge planning with Care Management. MD CELIA HERNANDEZ/luisl /[id number] d: 03/24/17 2318 t: 04/18/17 1113, DISCHARGE SUMMARY
--- NOTE | ~2017-03-20 | ENPV ---
Vascular Lower Extremities DVT Study Procedure Demographics Patient Name WOO LUCIA Date of Study 03/20/2017 Patient Number [id number] Gender Male Date of 1930 Age 86 Visit Number [id number] Height 72 Accession Number [id number] Weight 149.92 Referring Bertha Felipe MD Interpreting Harsha Pantoja MD Physician Physician Physician Ordering Physician Bertha Felipe MD Soa Integration Architect Restaurant Shift Supervisor Luli Vivas [facility], T Conclusions Summary No evidence of deep vein thrombosis or superficial thrombophlebitis in the lower extremities bilaterally . Rouleaux flow seen in popliteal veins bilaterally-possibly secondary to CHF or other fluid overloaded states Procedure Type of Study: Veins:Lower Extremities DVT Study, Venous Duplex Lower Extremity Bilateral. Indications for Study:Stroke. Appropriate Use Criteria:9 Patient Status:STAT. Study Location:Inpatient Portable. Technical Quality:Adequate visualization. Velocities are measured in cm/s ; Diameters are measured in cm Right Lower Extremities DVT Study Measurements Right 2D and Doppler Measurements + + + + +------+------+ + !Location !Visualized!Compressibility!Thrombosis!Signal!Reflux!Reflux ! ! ! ! ! ! ! !(sec) ! + + + + +------+------+ + !GSV Thigh !Yes !Yes !None !Phasic! ! ! + + + + +------+------+ + !Common !Yes !Yes !None !Phasic! ! ! !Femoral ! ! ! ! ! ! ! + + + + +------+------+ + !Prox !Yes !Yes !None !Phasic! ! ! !Femoral ! ! ! ! ! ! ! + + + + +------+------+ + !Mid Femoral!Yes !Yes !None !Phasic! ! ! + + + + +------+------+ + !Dist !Yes !Yes !None !Phasic! ! ! !Femoral ! ! ! ! ! ! ! + + + + +------+------+ + !Popliteal !Yes !Yes !None !Phasic! ! ! + + + + +------+------+ + !Gastroc !Yes !Yes !None ! ! ! ! + + + + +------+------+ + !PTV !Yes !Yes !None ! ! ! ! + + + + +------+------+ + !Peroneal !Yes !Yes !None ! ! ! ! + + + + +------+------+ + Left Lower Extremities DVT Study Measurements Left 2D and Doppler Measurements + + + + +------+------+ + !Location !Visualized!Compressibility!Thrombosis!Signal!Reflux!Reflux ! ! ! ! ! ! ! !(sec) ! + + + + +------+------+ + !GSV Thigh !Yes !Yes !None !Phasic! ! ! + + + + +------+------+ + !Common !Yes !Yes !None !Phasic! ! ! !Femoral ! ! ! ! ! ! ! + + + + +------+------+ + !Prox !Yes !Yes !None !Phasic! ! ! !Femoral ! ! ! ! ! ! ! + + + + +------+------+ + !Mid Femoral!Yes !Yes !None !Phasic! ! ! + + + + +------+------+ + !Dist !Yes !Yes !None !Phasic! ! ! !Femoral ! ! ! ! ! ! ! + + + + +------+------+ + !Popliteal !Yes !Yes !None !Phasic! ! ! + + + + +------+------+ + !Gastroc !Yes !Yes !None ! ! ! ! + + + + +------+------+ + !PTV !Yes !Yes !None ! ! ! ! + + + + +------+------+ + !Peroneal !Yes !Yes !None ! ! ! ! + + + + +------+------+ + Signature dtt: KERI WAGGONER dtd: 03/20/170 Physician Self Edit
--- NOTE | ~2017-03-20 | ECHO ---
Transthoracic Echocardiography Report (TTE) Demographics Patient Name WOO LUCIA Date of Study 03/20/2017 E Patient Number [id number] Visit Number [id number] Date of 1930 Room Number G6211 Gender Male Number Age 86 year(s) Referring Bertha Felipe MD Children Librarian Luli Vivas RD, Physician RVT Physician Interpreting Jessica Penny MD Loan Workout Officer Physician Supervising Ordering Bertha Felipe MD, MD/MLP Physician Nurse Stress Machine Molder Conclusions Contractility Score Summary Normal Left Ventricular contractility was noted. Summary The estimated left ventricular ejection fraction is 55-60%. Mild concentric left ventricular hypertrophy. Diastolic assessment reveals Grade III restrictive diastolic dysfunction. Mildly reduced right ventricular function. The left atrium is moderately dilated by LA volume index measurement. Informed consent was obtained, bubble study was done, bubbles crossed to the left atrium suggesting a PFO or ASD. Procedure Type of Study TTE procedure:2D Echocardiogram. Procedure Date Date: 03/20/2017 Start: 03:10 PM Study Location: Inpatient Portable Technical Quality: Adequate visualization Indications:CVA. Appropriate Use Criteria: 9 Patient Status: Routine Contrast Medium: Bubble Study. HR: 70 bpm BP: 136/72 mmHg M-Mode/2D Measurements LV Diastolic Dimension: 4.31 cm LV Systolic Dimension: 2.68 cm LV Septum Diastolic: 1.07 cm LV PW Diastolic: 1.29 cm Cardiac Output: 1.51 l/min LA Dimension: 4.4 cm LVOT: 1.8 cm LVOT VTI: 8.47 cm RV Base: 3.19 cm LV Stroke volume: 21.54 ml RV Length: 6.02 cm TAPSE: 1.17 cm TDI-S': 7.9 cm/s Doppler Measurements AV Peak Velocity: 0.87 m/s MV Peak E-Wave: 1.02 m/s AV Peak Gradient: 3.05 mmHg MV Peak A-Wave: 0.38 m/s AV Mean Gradient: 2 mmHg MV E/A Ratio: 2.68 LVOT Peak Velocity: 0.45 m/s MV P1/2t: 61 msec TR Gradient:9.73 mmHg PV Peak Velocity: 0.77 m/s Estimated RAP:15 mmHg PV Peak Gradient: 2.36 mmHg Estimated RVSP: 25 mmHg Estimated PASP: 24.73 mmHg E' Septal Velocity: 0.08 m/s A' Septal Velocity: 0.03 m/s E' Lateral Velocity: 0.11 m/s A' Lateral Velocity: 0.04 m/s Findings Left Ventricle Mild concentric left ventricular hypertrophy. Diastolic assessment reveals Grade III restrictive diastolic dysfunction. Right Ventricle Mildly reduced right ventricular function. Left Atrium The left atrium is mildly dilated. Informed consent was obtained, bubble study was done, bubbles crossed to the left atrium suggesting a PFO or ASD. Right Atrium Normal right atrial size. Mitral Valve Mild-moderate mitral regurgitation by color Doppler. Mild mitral annular calcification. Aortic Valve Normal aortic valve structure and function. Tricuspid Valve Mild tricuspid regurgitation by color Doppler. Pulmonic Valve Normal pulmonic valve structure and function. Pericardial Effusion No evidence of pericardial effusion. Miscellaneous Visualized portions of the aortic root and ascending aorta appear normal in size. Pleural Effusion No evidence of pleural effusion. Contractility Score LV regional wall motion:(0-Non visualized 1-Normal 2-Hypokinesis 3-Akinesis 4-Dyskinesis 5-Aneurysm) Signature dtt: Zohaib Lopez (cardio) dtd: 03/20/17 1510 Physician Self Edit
--- NOTE | ~2017-03-20 | CON ---
[facility] AGE: 86 Y [address] ROOM: [id number] [place] [address] LOCATION: GICU ADMIT DATE: 03/20/2017 Consultation DISCHARGE DATE: FAMILY PHYSICIAN: Zohaib Stahl MD ATTENDING PHYSICIAN: BRAYDON INGRAM REFERRING PHYSICIAN: ANGELA JEROME MD Consult for Ms Bartlett, physician retail sales assistant. This 86-year-old gentleman is referred for rehab evaluation, admitted on 03/20/2017 with generalized weakness and decreased appetite. He is known to have history of chronic kidney disease stage 3 and also he was recently discharged on March 18 with being treated for dehydration. At this time around CT scan showed that he has a heterogeneity in the right parietal and temporal regions surrounded by what seems to be low-density. He was also reportedly having some mass effect on the posterior horn of right anterior ventricle which was at one time thought might be neoplastic. He also has history of diabetes type 2. History of hypertension, atrial fibrillation, CA bladder. Coronary artery disease, reflux gastric disease, carpal tunnel release, status post lumbar spine surgery, status post anterior cervical spine arthrodesis. At the present time, he is alert, slow but oriented and proper. Vitals are as follows, blood pressure 127/60, temperature 97.7, pulse 72, respiration rate 20. He is 6 feet 1 inch and weighs 69.4 kg. Cranial nerves 2 through 12 are within normal limits. No facial droop. Tongue and soft palate are moving symmetrical. Voice is clear and not wet. He can move bilateral upper and lower extremity. Muscle strength about 4- throughout with good coordination, maybe a little bit less coordinated on the left side. He is continent of his bowel bladder. He can ambulate up to 60 feet with front-wheeled walker, and he is on the following medications. 1. Insulin aspart, moderate scale. 2. NaCl 0.9%. 3. Aspirin low dose. 4. Gabapentin. 5. Insulin NPH. 6. Docusate sodium. 7. Glucagon. PATIENT'S NAME: WOO LUCIA [facility] AGE: 86 Y [address] ROOM: [id number] [place], [place] [address] LOCATION: GICU ADMIT DATE: 03/20/2017 Consultation DISCHARGE DATE: FAMILY PHYSICIAN: Zohaib Stahl MD ATTENDING PHYSICIAN: BRAYDON INGRAM 8. Glucose. 9. Dextrose. 10. Metoprolol. 11. Levothyroxine. 12. Norvasc. 13. Albuterol. 14. Protonix. 15. Lipitor. 16. Apresoline. 17. Cordarone. 18. Mucomyst. 19. KCl. ASSESSMENT AND PLAN: I feel this gentleman has made good progress; however, he is only able to walk about 60 feet and is a little bit not very steady, at risk of falling. I feel that he should not drive until he is evaluated. Please see the orders. I will continue his PT, OT which has been initiated. I feel he can benefit from intensive rehabilitation of about maybe 10 days to 2 weeks aiming to discharge at modified independence. Thank you for this referral. I will try to take him if it is okay and if everybody agrees on that including his treating physician. ORVILLE BOCANEGRA MD WMS/modl /[id number] d: 03/22/171928 t: 03/23/17807, CONSULTATION REPORT
[2017-03-20 15:41] LABS: BASOPHIL % 0.2 %; EOSINOPHIL % 0.1 %; HEMATOCRIT 32.3 % (33.0-50.0); HEMOGLOBIN 10.6 g/dL (11.0-16.0); IMMATURE GRANULOCYTE # 0.1 K/uL (0.0-0.3); IMMATURE GRANULOCYTE % 0.4 %; LYMPHOCYTE # 1.2 K/uL (0.8-4.0); LYMPHOCYTE % 8.4 %; MCH 30.5 pg (27.0-34.0); MCHC 32.8 gm/dL (32.0-36.5); MCV 92.8 fl (83.0-98.0); MONOCYTE # 1.4 K/uL (0.0-1.0); MPV 10.1 fl (9.4-12.4); NEUTROPHIL # (ANC) 11.1 K/uL (1.4-9.0); NEUTROPHIL % 80.9 %; NRBC % 0 /100WBC (0-0.00); PLATELET COUNT 306 K/uL (150-450); RBC 3.48 M/uL (3.50-5.50); RDW-CV 13.6 % (11.9-14.6); WBC 13.8 K/uL (4.0-11.0)
[2017-03-20 15:55] LABS: INR - (THERAPEUTIC) 1.08 (0.92-1.07); PROTIME 11.4 SECONDS (9.8-11.4)
[2017-03-20 16:02] LABS: ALBUMIN 2.4 gm/dL (3.5-5.0); ALK PHOS 61 IU/L (33-138); ALT 23 IU/L (12-78); ANION GAP 11.8 (10.0-19.0); AST 23 IU/L (10-40); BLOOD UREA NITROGEN 29 mg/dL (6-24); CALCIUM 8.4 mg/dL (8.5-10.5); CHLORIDE 102 mMol/L (96-110); CO2 24 mMol/L (22-32); CREATININE 1.6 mg/dL (0.6-1.3); ESTIMATED GFR (MDRD EQUATION) 41; POTASSIUM 3.8 mMol/L (3.7-5.1); SODIUM 134 mMol/L (135-145); TOTAL PROTEIN 7.8 g/dL (6.0-8.4)
[2017-03-20 16:03] LABS: TOTAL BILIRUBIN 0.2 mg/dL (0.0-1.5)
[2017-03-20 17:06] LABS: BILIRUBIN URINE NEGATIVE (NEGATIVE); BLOOD URINE 150 /UL (NEGATIVE); COLOR URINE YELLOW (YELLOW); GLUCOSE URINE 250 mg/dL (NEGATIVE); KETONE URINE NEGATIVE (NEGATIVE); LEUKOCYTES URINE 500 /UL (NEGATIVE); NITRITE URINE NEGATIVE (NEGATIVE); PROTEIN URINE 100 mg/dL (NEGATIVE); SPEC GRAVITY URINE 1.015 (1.003-1.035); TURBIDITY URINE 3+ (CLEAR); UROBILINOGEN URINE NORMAL (NORMAL)
[2017-03-20 17:15] LABS: CPK 91 IU/L (35-332)
[2017-03-20 17:19] LABS: WBC URINE 20-50 #/HPF (NEGATIVE)
[2017-03-20 17:20] LABS: BACTERIA URINE FEW (NEGATIVE)
[2017-03-20 17:21] LABS: WBC CLUMPS URINE FEW (NEGATIVE)
--- NOTE | 2017-03-20 18:38 | NUR ---
A/Ox3. PERRLA. C/O slight head ache. No numbness or tingling. Appeared to have some slight left sided visual field loss. SBP 120-140s, HR at 70. Afebrile. Continues on 4L NC with o2 sats in upper 90s. Passed nurse bedside swallow study, now on diabetic diet. Follow up: CT and CTA tommorow.
--- NOTE | 2017-03-21 04:47 | NUR ---
Significant Event: Patient alert and oriented x3. Repositions self in bed. NIHSS 4. Left visual neglect and some left sensory impairment. Left hand grasp slightly weaker. Paced rhythm at 69 but at times will jump irregular 70-80s. SBPs 100-140s, goal to keep <150. Afebrile. Continues on 3L oxygen per home setting in mid 90%s. Left AC IV saline locked and left forearm IV running fluids. Denies any pain. Pleasant/cooperative with cares Follow up: CT of abdomen & pelvis today?, pacemaker to be interrogated
[2017-03-21 05:34] LABS: HEMATOCRIT 30.8 % (33.0-50.0); HEMOGLOBIN 10.2 g/dL (11.0-16.0); MCH 30.5 pg (27.0-34.0); MCHC 33.1 gm/dL (32.0-36.5); MCV 92.2 fl (83.0-98.0); MPV 9.8 fl (9.4-12.4); RBC 3.34 M/uL (3.50-5.50); RDW-CV 13.7 % (11.9-14.6)
[2017-03-21 05:54] LABS: ANION GAP 10.5 (10.0-19.0); CALCIUM 7.7 mg/dL (8.5-10.5); CREATININE 1.3 mg/dL (0.6-1.3); POTASSIUM 3.5 mMol/L (3.7-5.1)
--- NOTE | 2017-03-21 06:02 | NUR ---
patient was transferred to NTU floor at 0510
--- NOTE | 2017-03-21 11:47 | NUR ---
Diabetes consult: Patient referral placed due to A1C of 9.2%. The patient is alert, however has periods of confusion. He is unable to tell me what insulins he takes at home at this time. He reports living alone. Will continue to follow and provide education when appropriate.
--- NOTE | 2017-03-21 14:06 | NUR ---
Introduced self and CM role to Cesar and his , Nicole who was at bedside. Talked with Nicole for most of the visit as ENGINEERING SCIENTIST was shaving Torin' face at the time. Nicole tells me that they are planning on Cesar being able to go home when ready to dismiss. They have all the DME they need at home. She would like outpatient therapies if doctors feels like therapies is needed, but is also open to C if doctors feel like that is better for Cesar. She and Cesar do his medications, but most often times he is able to do them on his own. Cesar is primarily wheelchair bound so he transfers to and from by himself, but she is there to help if needed. She denies any quesitons, needs or concerns at this time. CM to continue to follow and assist. Plan home.
--- NOTE | 2017-03-21 16:41 | NUR ---
Significant Event: a/o x 3. Moves all extremities spontaneously and on command. NIHSS=4. does have left visual neglect and dullness to left side. wears oxygen continuously at home. on 3 liters this shift. paced heart rhythm. has dual lumen Pacer that was interrogated by [facility] today with noted afib on and off since 03/16. results on chart. ambulates with walker/gait belt and 1-2 assist. voids per urinal. patient's assists with using urinal. takes meds whole. Diabetic diet. accuchecks ac/hs. IV to left forearm infusing normal saline at 75ml/hr. ICU status HIPPA Code word: Richard Delarosa Neurology to see today.
--- NOTE | 2017-03-22 04:38 | NUR ---
Significant Event: A&OX3. L) sided weakness L) sided visual neglect. PERRLA. Moves all extremities spontateously. NIHSS 2. Up 2 AGBW, uses wheelchair at home. On tele Paced rythm. VSS. Wears 3L of O2 pt wears 3-4L at home. Last BM 03/21. ADA diet. Voids per urinal. IV to L) AC SL. IV to L) forearm running NS at 75ml/hr. On Rocephin for UTI. Takes meds whole without complications. Follow up: Accuchecks Q4hr.
[2017-03-22 06:36] LABS: ANION GAP 10.5 (10.0-19.0); CALCIUM 7.5 mg/dL (8.5-10.5); CREATININE 1.2 mg/dL (0.6-1.3); POTASSIUM 3.5 mMol/L (3.7-5.1)
--- NOTE | 2017-03-22 12:03 | NUR ---
Significant Event:Patient is alert and oriented times three. PERRLA. CSM intact. Moves extremities spontaneously and on command. NIH-SS 2, left visual defecit. Lungs clear. VSS on room air. NSR on telemetry, paced. Bowel sounds active, no bm this shift. Patient voids per the bathroom with 2 assist, gaitbelt, and walker. ACHS accu checks. Bilateral calf pumps. No s/s of pain. Patient takes medications whole 1 at a time with water. Peripheral IV to the LAC has NS infusing at 75ml/hr and Amiodarone gtt going at 1mg for 6 hours, then to go to 0.5mg for 18 hours. ADA diet. Follow up:Dr. Urban to see.
--- NOTE | 2017-03-22 13:20 | NUR ---
Introduced self and role of care management to pt and his . I discussed dc plans and md thinking will need swingbed or something prior to home. I left a vm with Gia but do not think Dr Clay is thinking rehab. I spoke with and she states he was doing most everything for himself but I discussed more with the transfers,strengthening and cognitive. She was open to this and gave options of [facility] swingbed. [facility], etc. I then spoke to pt regarding this and he is open to a short stay and would be ok with the hospital but then the came up with [facility] because her mother was there. He then chose [facility] first and the swingbed second because Dr Stahl then can follow. I then called Alvaro at [facility] the s/w and faxed referral. I then spoke with him and Aston and they are considering pt and will call . I asked about transfer and the weekend is a posibility but for sure they can on Sunday. WIll continue to follow.
--- NOTE | 2017-03-22 19:18 | NUR ---
Significant Event: I took over cares from Graciela, RN @ 1200. Patient is A&O x3. Follows commands. Equal strength in all extremities. Denies numbness & tingling. Pupils equal & brisk. Does have vision issues on the L) side. NIHSS = 2. Is PALA. VSS but is on an Amioderone gtt that is to be d/c'd 03/23 @ 1130 and PO med started then. On 3L O2 by [facility] and he wears that at home. No complaints of pain. IV to L) FA came out & he has one in his L) AC infusing. AC/HS accuchecks. Pacemaker. Up with 2 assist, gait belt, & walker for short distances. Voids per urinal & is sometimes incontinent. Follow up CT scheduled on 03/24. Cooperative with cares. Follow up: Monitor neuro & VS.
--- NOTE | 2017-03-23 03:51 | NUR ---
Significant Event:Patient alert and ox3, forgetful at times. Moves all extremeties. Pupils equal and reactive. Incontient at times. Assist to turn. PIV x2, with Amiodarone infusing to left ac and the left forearm saline lock between atb's. Accuchecks ac/hs. NIHSS 2 this shift. with left sided peripheral vision loss. On 3L nc as at home. Follow up:Amiodarone gtt off today, starting PO.
[2017-03-23 05:41] LABS: ANION GAP 9.6 (10.0-19.0); CALCIUM 7.6 mg/dL (8.5-10.5); CREATININE 1.3 mg/dL (0.6-1.3); POTASSIUM 3.6 mMol/L (3.7-5.1)
--- NOTE | 2017-03-23 13:40 | NUR ---
I did talk with Gia this am and she thinks they can take on Sunday. I explained I don't know if that would be the best for him but will talk with him and family. I also spoke with Isabel at [facility] and they will be able to accept pt when ready either the or Sunday. I then spoke with pt, daughter and and another daughter Iqra on the phone later about the differenc between skilled and acute rehab. PT and and family all agree that acute rehab will be too much for him and want to go to [facility] for skilled care. I then touched base with md, nursing and also Isabel and the plan is ct of his head on Sunday and per Isabel they will take then on Sunday. She called back and the van will be here Sunday at 10-1030 am to continuous pickling line pickler and will call before they leave and touch base with nursing. I updated pt, and both daughters and they agree to the plan. Fax cover sheet on the chart to fax orders. I updated Ellie MAHAJAN and also agree's to plan.
--- NOTE | 2017-03-23 19:21 | NUR ---
Significant Event:Patient is alert and oriented times three. PERRLA. CSM intact. NIH-SS 2 for left peripheral vision loss. Moves extremities spontaneously and on command. Lungs clear. VSS on 3L of oxygen. SR, pacer. Bowel sounds acitve. Patient is incontinent of urine. Bilateral calf pumps in place. No s/s of pain. Patient takes medications 1 at a time with water. Peripheral IV saline locked. ADA diet. ACHS accu checks. Follow up:DC to SNF on Sunday, CT scan in AM
--- NOTE | 2017-03-24 03:33 | NUR ---
Significant Event: A&OX3. Forgetful at times. Moves all extremities spontaneosly. L) side peripheral vision loss. NIHSS 2. PERRLA. On tele has pacemaker. Goal is to keep SBP <150. On 4L of O2 wears 3L of O2 at home. ADA diet. Accuchecks AC/HS. IV to L) AC SL. IV to L) forearm SL. Inc of urine. Takes pills 1 at a time with water. Follow up: CT this AM.
[2017-03-24 05:46] LABS: ANION GAP 10.5 (10.0-19.0); CALCIUM 7.6 mg/dL (8.5-10.5); CREATININE 1.3 mg/dL (0.6-1.3); POTASSIUM 3.5 mMol/L (3.7-5.1)
--- NOTE | 2017-03-24 17:47 | NUR ---
Significant Event: A/O X3. Forgetful at times. Follows commands. Moves everything spontaneously. L) sided peripheral vision issues and neglect. Moderate equal strength. NIHSS 2. Pacemaker. VSS. COMANCHE. Afebrile. 4L NC with sats in the mid 90s. LS clear and diminished. Coarse at times. Clears with cough. Accuchecks ACHS with SSI. Coverage given. Pills 1 at a time with water. Continent/Incontinent at times. No apaprent skin issues. PIV SLL. 2 person with gaitbelt and walker. Denies pain. Pleasant and cooeprative with cares. Patient states "my stomach doesn't feel good." Follow up: [facility] tomorrow
--- NOTE | 2017-03-25 03:37 | NUR ---
Significant Event: A&Ox3 forgetful at times. Equal strength throughout. Has L) sided neglect. L) side peripheral vision loss. NIHSS 2. On tele Paced rythm. On 3L of O2 sats in mid 90s wears at home. ADA diet. Accuchecks AC/HS. Accuchecks at 2100 was 67 gave pt juice and crackers blood sugar brought up to 120 held long acting insulin at that time. Last BM 03/24. IV to L) forearm SL. Takes pills 1 at a time in water. Follow up: To [facility] today at 1030 meds signed and on chart
[2017-03-25 05:44] LABS: CALCIUM 7.6 mg/dL (8.5-10.5); CREATININE 1.3 mg/dL (0.6-1.3); MAGNESIUM 1.9 mg/dL (1.8-2.6)
--- NOTE | 2017-03-25 10:20 | NUR ---
A/O X3, forgetful, wears O2 at home 3l/nc, good appetite, voids per urinal, BM last night. @ bedside.
== END 2017-03-25 11:00 | disposition swing bed (61) | DRG 64 ==
LOC: GICU 14:11 → GNTU 03-21 05:17 → GICU 03-22 15:49
PROVIDERS: Hospitalist; Nurse Practitioner Family; ADMIT Internal Medicine
DX: I63.9 Cerebral infarction, unspecified (principal); G93.6 Cerebral edema; J96.11 Chronic respiratory failure with hypoxia; I48.0 Paroxysmal atrial fibrillation; I13.0 Hypertensive heart and chronic kidney disease with heart failure and stage 1 through stage 4 chronic kidney disease, or unspecified chronic kidney disease; E11.22 Type 2 diabetes mellitus with diabetic chronic kidney disease; E11.65 Type 2 diabetes mellitus with hyperglycemia; I50.9 Heart failure, unspecified; Z99.81 Dependence on supplemental oxygen; R47.01 Aphasia; Z79.01 Long term (current) use of anticoagulants; N18.3 Chronic kidney disease, stage 3 (moderate); J44.9 Chronic obstructive pulmonary disease, unspecified; Z79.4 Long term (current) use of insulin; Z85.51 Personal history of malignant neoplasm of bladder; N40.0 Benign prostatic hyperplasia without lower urinary tract symptoms; K21.9 Gastro-esophageal reflux disease without esophagitis; I25.10 Atherosclerotic heart disease of native coronary artery without angina pectoris; M06.9 Rheumatoid arthritis, unspecified; Z88.2 Allergy status to sulfonamides; Z87.891 Personal history of nicotine dependence; Z79.82 Long term (current) use of aspirin
CPT/HCPCS: J0282; J0696; J7030; J7040; J7050; J7060; Q9967